=== PATIENT | male | born 1965 | race Caucasian/White ===

== ENCOUNTER 2023-08-25 07:11 | Outpatient (OUT) | payer OTHER, SELFPAY ==
[2023-08-25 07:24] LABS: Basophils Absolute Auto 0.1 10^3/uL (0.0-0.1); Basophils Percent Auto 0.9 % (0.2-2.0); Eosinophils Absolute Auto 0.4 10^3/uL (0.0-0.7); Eosinophils Percent Auto 6.1 % (0.9-7.0); Hematocrit 40.3 % (42.0-54.0); Hemoglobin 13.2 g/dL (14.0-18.0); Immature Granulocytes Abs Auto 0.02 10^3/uL (0.00-0.03); Immature Granulocytes Pct Auto 0.3 % (0.0-0.5); Lymphocytes Absolute Auto 1.9 10^3/uL (1.2-3.8); Mean Corpuscular HGB Conc 32.8 g/dL (29.9-35.2); Mean Corpuscular Hemoglobin 31.3 pg (25.9-34.0); Mean Corpuscular Volume 95.5 fL (80.0-94.0); Mean Platelet Volume 10.7 fL (9.5-13.5); Monocytes Absolute Auto 0.5 10^3/uL (0.3-0.8); Neutrophils Absolute Auto 3.5 10^3/uL (1.4-6.5); Neutrophils Percent Auto 54.7 % (43.0-75.0); Platelet Count 161 10^3/uL (150-450); Red Blood Count 4.22 10^6/uL (4.70-6.10); Red Cell Distribution Width 11.9 % (11.0-15.0); White Blood Count 6.4 10^3/uL (4.0-11.0)
[2023-08-25 07:31] LABS: Estimated Average Glucose 111 mg/dL; Glycohemoglobin A1C 5.5 % (4.5-6.2)
[2023-08-25 07:54] LABS: Anion Gap 12.3; BUN Creatinine Ratio 12.9; Calcium 8.8 mg/dL (8.5-10.1); Carbon Dioxide 27.9 mmol/L (21.0-32.0); Chloride 107 mmol/L (98-107); Chol HDL Ratio 6.6; Cholesterol 237 mg/dL (<=200); Estimated GFR (African America >60 (>=60); Estimated GFR (Non-African Ame >60 (>=60); Glucose 124 mg/dL (74-106); HDL Cholesterol 36 mg/dL (40-60); Potassium 4.2 mmol/L (3.5-5.1); Sodium 143 mmol/L (136-145); Triglycerides 281 mg/dL (<=150); VLDL CHOLESTEROL 56.2 mg/dL
== END 2023-08-25 07:12 | disposition home or self-care (01) ==
LOC: LAB 07:11
PROVIDERS: PCP Internal Medicine; Visit Provider Internal Medicine
DX: I10 Essential (primary) hypertension (principal); Z13.220 Encounter for screening for lipoid disorders; Z13.1 Encounter for screening for diabetes mellitus
CPT/HCPCS: 36415; 80048; 80061; 83036; 85025

== ENCOUNTER 2024-09-13 13:53 | Outpatient (OUT) | payer OTHER, SELFPAY ==
--- NOTE | 2024-09-13 14:15 | CT_ITS ---
[address] [address] Patient Name: LA WILKINSON MRN: [id number] date: 1965 Sex: M Assigned Patient Location: LAB Current Patient Location: Accession/Order Number: [id number] Exam Date: 09/13/2024 15:05 Report Date: 09/14/2024 09:08 At the request of: ZULLY BOYKIN Procedure: CT abdomen pelvis w con EXAMINATION: CT abdomen pelvis w con HISTORY: Left upper quadrant pain COMPARISON: No relevant comparison available. TECHNIQUE: Axial, Coronal, and Sagittal images were created without IV contrast. Dose reduction techniques were achieved by using automated exposure control and/or adjustment of mA and/or kV according to patient size and/or use of iterative reconstruction technique. FINDINGS: LUNG BASES: No visible pulmonary or pleural disease. LIVER: Diffuse hypoattenuation of the liver suggesting hepatic steatosis. There is a 1.6 cm enhancing mass in the left hepatic lobe axial image #32 possibly a hemangioma BILIARY: No dilatation or calcification. PANCREAS: No lesion, fluid collection, ductal dilatation, or atrophy. SPLEEN: No enlargement or focal lesion. ADRENALS: No mass or enlargement. KIDNEYS: Nonobstructive right renal nephrolith. No obstructive uropathy BOWEL/MESENTERY: No visible mass, obstruction, or bowel wall thickening. Normal appendix AORTA/VASCULAR: No aortic aneurysm. Moderate calcific atherosclerosis RETROPERITONEUM: No mass or adenopathy. LYMPH NODES: No adenopathy. URINARY BLADDER: No visible focal wall thickening, lesion, or calculus. PELVIC ORGANS: No visible mass. Pelvic organs appropriate for patient age. ABDOMINAL WALL: No mass or hernia. BONES: No bony lesion or fracture. OTHER: Negative. CT/CT abdomen pelvis w con IMPRESSION: 1.6 cm enhancing left hepatic lobe mass, hemangioma is favored. Electronically authenticated by: MILANA MARTIN Date: 09/14/2024 09:08
--- OUTSIDE RECORDS SUMMARY | 2024-09-13 14:18 | XMS_ITS | CCD ---
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 (10/31/18 20:15:00 EDT) ALT: 25 Int._Unit/L (10/31/18 20:15:00 EDT) AST: 28 Int._Unit/L (10/31/18 20:15:00 EDT) Total Protein: 7 gm/dL (10/31/18 20:15:00 EDT) Albumin Lvl: 4.4 gm/dL (10/31/18 20:15:00 EDT) Globulin: 2.6 gm/dL (10/31/18 20:15:00 EDT) A/G Ratio: 1.7 (10/31/18 20:15:00 EDT) Bili Total: 0.6 mg/dL (10/31/18 20:15:00 EDT) Bili Direct: <0.1 (10/31/18 20:15:00 EDT) Bili Indirect: Unable to Calculate Abnormal (10/31/18 20:15:00 EDT) Lipase Lvl: 31 unit/L (10/31/18 20:15:00 EDT) Myoglobin: 223 ng/mL High (10/31/18 20:15:00 EDT) Troponin: <0.03 (10/31/18 20:15:00 EDT) Total CK: 261 Int._Unit/L (10/31/18 20:15:00 EDT) U Amph Scr: Negative (10/31/18 21:10:00 EDT) U Heather Scr: Negative (10/31/18 21:10:00 EDT) U Benzodia Scr: Negative (10/31/18 21:10:00 EDT) U Cannab Scr: Negative (10/31/18 21:10:00 EDT) U Cocaine Scr: Negative (10/31/18 21:10:00 EDT) U Opiate Scr: NEG1 (10/31/18 21:10:00 EDT) U PCP Scr: Negative (10/31/18 21:10:00 EDT) Ethanol Lvl: <5 (10/31/18 20:15:00 EDT) UA Spec Desc: Clean Catch (10/31/18 21:10:00 EDT) UA Color: Yellow2 (10/31/18 21:10:00 EDT) UA Clarity: Clear2 (10/31/18 21:10:00 EDT) UA Spec Grav: >=1.030 (10/31/18 21:10:00 EDT) UA pH: 5.5 (10/31/18 21:10:00 EDT) UA Protein: 1+ Abnormal (10/31/18 21:10:00 EDT) UA Glucose: NEGATIVE1 (10/31/18 21:10:00 EDT) UA Ketones: NEGATIVE1 (10/31/18 21:10:00 EDT) UA Bili: NEGATIVE1 (10/31/18 21:10:00 EDT) UA Blood: 2+ Abnormal (10/31/18 21:10:00 EDT) UA Nitrite: NEGATIVE1 (10/31/18 21:10:00 EDT) UA Urobilinogen: 0.2 (10/31/18 21:10:00 EDT) UA Leuk Est: NEGATIVE1 (10/31/18 21:10:00 EDT) UA RBC: 4-20 (10/31/18 21:10:00 EDT) UA Squam Epithelial: 0-2 (10/31/18 21:10:00 EDT) UA WBC: 0-5 (10/31/18 21:10:00 EDT) UA Bacteria: Trace2 (10/31/18 21:10:00 EDT) UA Amorph Trisha: Present (10/31/18 21:10:00 EDT) UA Mucous: Trace2 (10/31/18 21:10:00 EDT) ABO/Rh: A POS (10/31/18 20:15:00 EDT) ABSC Gel Interp: Negative (10/31/18 20:15:00 EDT) Diagnostic Results CT Abdomen/Pelvis w/ Contrast * Preliminary * 10/31/18 21:53:20 NEGATIVE: no acute abdominal injury. nonobstructing right renal calculus. fatty liver. enhancing right and left lobe hepatic lesions are most likely hemangiomas but not entirely specific Read By: Julia Quijano DO CT Chest w/ Contrast * Preliminary * 10/31/18 21:52:35 NEGATIVE: no acute thoracic injury Read By: Julia Quijano DO CT Head or Brain w/o Contrast * Preliminary * 10/31/18 22:04:05 : frontal scalp contusion. no acute brain or skull injury. gas in the right malar region. suspected nondisplaced R maxillary sinus fracture age indetermite fx of rightward nasal bridge Read By: Julia Quijano DO CT Spine Cervical w/o Contrast * Preliminary * 10/31/18 21:39:11 NEGATIVE: NO FRACTURE Read By: Julia Quijano DO Normal [facility] Comment on above: Result Comment: Elec tronically Signed By: Julia Quijano DO\.br\Date and Time Signed: 11/01/18 02:53 EDT ED Patient Education Noteon 11-01-2018 ED Patient Education Note Family Medicin e Concussion A concussion is a brain injury. It is caused by: ? A hit to the head. ? A quick and sudden movement (jolt) of the head or neck. A concussion is usually not life threatening. Even so, it can cause serious problems. If you had a concussion before, you may have concussion-like problems after a hit to your head. HOME CARE General Instructions ? Follow your doctor's directions carefully. ? Take medicines only as told by your doctor. ? Only take medicines your doctor says are safe. ? Do not drink alcohol until your doctor says it is okay. Alcohol and some drugs can slow down healing. They can also put you at risk for further injury. ? If you are having trouble remembering things, write them down. ? Try to do one thing at a time if you get distracted easily. For example, do not watch TV while making dinner. ? Talk to your family members or close friends when making important decisions. ? Follow up with your doctor as told. ? Watch your symptoms. Tell others to do the same. Serious problems can sometimes happen after a concussion. Older adults are more likely to have these problems. ? Tell your teachers, school nurse, school counselor, executive coach, athletic equipment custodian, or target worker about your concussion. Tell them about what you can or cannot do. They should watch to see if: ? It gets even harder for you to pay attention or concentrate. ? It gets even harder for you to remember things or learn new things. ? You need more time than normal to finish things. ? You become annoyed (irritable) more than before. ? You are not able to deal with stress as well. ? You have more problems than before. ? Rest. Make sure you: ? Get plenty of sleep at night. ? Go to sleep early. ? Go to bed at the same time every day. Try to wake up at the same time. ? Rest during the day. ? Take naps when you feel tired. ? Limit activities where you have to think a lot or concentrate. These include: ? Doing homework. ? Doing work related to a job. ? Watching TV. ? Using the computer. Returning To Your Regular Activities Return to your normal activities slowly, not all at once. You must give your body and brain enough time to heal. ? Do not play sports or do other athletic activities until your doctor says it is okay. ? Ask your doctor when you can drive, ride a bicycle, or work other vehicles or machines. Never do these things if you feel dizzy. ? Ask your doctor about when you can return to work or school. Preventing Another Concussion It is very important to avoid another brain injury, especially before you have healed. In rare cases, another injury can lead to permanent brain damage, brain swelling, or . The risk of this is greatest during the first 7?10 days after your injury. Avoid injuries by: ? Wearing a seat belt when riding in a car. ? Not drinking too much alcohol. ? Avoiding activities that could lead to a second concussion (such as contact sports). ? Wearing a helmet when doing activities like: ? Biking. ? Skiing. ? Skateboarding. ? Skating. ? Making your home safer by: ? Removing things from the floor or stairways that could make you trip. ? Using grab bars in bathrooms and handrails by stairs. ? Placing non-slip mats on floors and in bathtubs. ? Improve lighting in dark areas. GET HELP IF: ? It gets even harder for you to pay attention or concentrate. ? It gets even harder for you to remember things or learn new things. ? You need more time than normal to finish things. ? You become annoyed (irritable) more than before. ? You are not able to deal with stress as well. ? You have more problems than before. ? You have problems keeping your balance. ? You are not able to react quickly when you should. Get help if you have any of these problems for more than 2 weeks: ? Lasting (chronic) headaches. ? Dizziness or trouble balancing. ? Feeling sick to your stomach (nausea). ? Seeing (vision) problems. ? Being affected by noises or light more than normal. ? Feeling sad, low, down in the dumps, blue, gloomy, or empty (depressed). ? Mood changes (mood swings). ? Feeling of fear or nervousness about what may happen (anxiety). ? Feeling annoyed. ? Memory problems. ? Problems concentrating or paying attention. ? Sleep problems. ? Feeling tired all the time. GET HELP RIGHT AWAY IF: ? You have bad headaches or your headaches get worse. ? You have weakness (even if it is in one hand, leg, or part of the face). ? You have loss of feeling (numbness). ? You feel off balance. ? You keep throwing up (vomiting). ? You feel tired. ? One black center of your eye (pupil) is larger than the other. ? You twitch or shake violently (convulse). ? Your speech is not clear (slurred). ? You are more confused, easily angered (agitated), or annoyed than before. ? You have more trouble resting than before. ? You are unable to recognize people or places. ? You have neck pain. ? It is difficult to wake you up. ? You have unusual behavior changes. ? You pass out (lose consciousness). MAKE SURE YOU: ? Understand these instructions. ? Will watch your condition. ? Will get help right away if you are not doing well or get worse. Document Released: 07/05/2010 Document Revised: 12/01/2014 Document Reviewed: 02/06/2014 ExitCare? Patient Information ?2015 [employer]. This information is not intended to replace advice given to you by your health care provider. Make sure you discuss any questions you have with your health care provider. Surgery Blunt Trauma You have been evaluated for injuries. You have been examined and your caregiver has not found injuries serious enough to require hospitalization. It is common to have multiple bruises and sore muscles following an accident. These tend to feel worse for the first 24 hours. You will feel more stiffness and soreness over the next several hours and worse when you wake up the first morning after your accident. After this point, you should begin to improve with each passing day. The amount of improvement depends on the amount of damage done in the accident. Following your accident, if some part of your body does not work as it should, or if the pain in any area continues to increase, you should return to the Emergency Department for re-evaluation. HOME CARE INSTRUCTIONS Routine care for sore areas should include: ? Ice to sore areas every 2 hours for 20 minutes while awake for the next 2 days. ? Drink extra fluids (not alcohol). ? Take a hot or warm shower or bath once or twice a day to increase blood flow to sore muscles. This will help you limber up . ? Activity as tolerated. Lifting may aggravate neck or back pain. ? Only take [id number] or prescription medicines for pain, discomfort, or fever as directed by your caregiver. Do not use aspirin. This may increase bruising or increase bleeding if there are small areas where this is happening. SEEK IMMEDIATE MEDICAL CARE IF: ? Numbness, tingling, weakness, or problem with the use of your arms or legs. ? A severe headache is not relieved with medications. ? There is a change in bowel or bladder control. ? Increasing pain in any areas of the body. ? Short of breath or dizzy. ? Nauseated, vomiting, or sweating. ? Increasing belly (abdominal) discomfort. ? Blood in urine, stool, or vomiting blood. ? Pain in either shoulder in an area where a shoulder strap would be. ? Feelings of lightheadedness or if you have a fainting episode. Sometimes it is not possible to identify all injuries immediately after the trauma. It is important that you continue to monitor your condition after the emergency department visit. If you feel you are not improving, or improving more slowly than should be expected, call your physician. If you feel your symptoms (problems) are worsening, return to the Emergency Department immediately. Document Released: 04/12/2002 Document Revised: 10/08/2012 Document Reviewed: 03/04/2009 ExitCare? Patient Information ?2014 [employer]. This information is not intended to replace advice given to you by your health care provider. Make sure you discuss any questions you have with your health care provider. Normal [facility] ED Patient Summaryon 019 ED Patient Summary [address] [address] Patient Discharge Instructions Person Information Name: DIONY WILKINSON Age: 53 Years Arrival Date: 10/31/2018 8:11 PM Discharge Diagnosis: 1:Right maxillary fracture; 2:Closed head injury; 3:Multiple contusions Primary Care Physician: Sanju Austin DO Provider Information Primary Provider: Julia Quijano DO Advanced Pewter Finisher:None The exam and treatment you received in the Emergency Department were for an urgent problem and are not intended as complete care. It is important that you follow up with a doctor, nurse practitioner, or physician?s marketing assistant for ongoing care. If your symptoms become worse or you do not improve as expected and you are unable to reach your usual health care provider, you should return to the Emergency Department. We are available 24 hours a day. DIONY WILKINSON has been given the following list of patient education materials, prescriptions and follow-up instructions: Follow-up Instructions: With: Address: When: JORGE L ESPINOZA [address], [address] [place], [place] [id number] Business (1) In 3 days 11/03/2018 Comments: ear nose and throat doctor follow up regarding your maxillary sinus fracture With: Address: When: Sanju Austin [address] [place] [address] Business (1) Within 1 to 2 days Comments: Return to ED if symptoms worsen In the event that this physician does not participate in your insurance network, please consult with your insurance company to find a nearby participating provider. Patient Education Materials: Concussion, Adult, Fhoo-mr-Natc; Blunt Trauma A MESSAGE TO ALL PATIENTS REGARDING OPIOIDS PRESCRIPTION OPIOIDS: WHAT YOU NEED TO KNOW Prescription opioids can be used to help relieve lstjmlch-da-uuvdzi pain and are often prescribed following a surgery or injury, or for certain health conditions. These medications can be an important part of the treatment but also come with serious risks. It is important to work with your healthcare provider to make sure you are getting the safest, most effective care. WHAT ARE THE RISKS AND SIDE EFFECTS OF OPIOID USE? Prescription opioids carry serious risks of addiction and overdose, especially with prolonged use. An opioid overdose, often marked by slowed breathing, can cause sudden . The use of prescription opioids can have a number of side effects as well, even when taken as directed: ? Tolerance?meaning you might need to take more of the medication for the same pain relief ? Physical dependence?meaning you have symptoms of withdrawal when a medication is stopped ? Increased sensitivity to pain ? Constipation ? Nausea, vomiting, and dry mouth ? Sleepiness and dizziness ? Confusion ? Depression ? Low levels of testosterone that can result in lower sex drive, energy, and strength ? Itching and sweating RISKS ARE GREATER WITH: ? History of drug misuse, substance use disorder, or overdose ? Mental health conditions (such as depression or anxiety) ? Sleep apnea ? Older age (65 years and older) ? Avoid alcohol while taking prescription opioids. Also, unless specifically advised by your health care provider, medications to avoid include: ? Benzodiazepines (such as Xanax or Valium) ? Muscle relaxants (such as Soma or Flexeril) ? Hypnotics (such as Ambien or Lunesta) ? Other prescription opioids KNOW YOUR OPTIONS Talk to your health care provider about ways to manage your pain that don?t involve prescription opioids. Some of these options may actually work better and have fewer risks and side effects. Options may include: ? Pain relievers such as acetaminophen, ibuprofen, and naproxen ? Some medication that are also used for depression or seizures ? Physical therapy and exercise ? Cognitive behavioral therapy, a psychological, goal-directed approach, in which patients learn how to modify physical, behavioral, and emotional triggers of pain and stress. IF YOU ARE PRESCRIBED OPIOIDS FOR PAIN: ? Never take opioids in greater amounts or more often than prescribed. ? Follow up with your primary health care provider. o Work together to create a plan on how to manage your pain. o Talk about ways to help manage your pain that don?t involve prescription opioids. o Talk about any and all concerns and side effects. ? Help prevent misuse and abuse o Never sell or share prescription opioids. o Never use another person?s prescription opioids. ? Store prescription opioids in a secure place and out of reach of others (this may include visitors, children, friends, and family). ? Safely dispose of unused prescription opioids: Find your community drug take-back program or your pharmacy mail-back program, or flush them down the toilet, following guidance from the Food and Drug Administration (www.fda.gov/Drugs/R esourcesForYou). ? Visit www.cdc.gov/drugover dose to learn about the risks of opioids abuse and overdose. ? If you believe you may be struggling with addiction, tell your health foster care worker and ask for guidance or call SAM[employer]?S National Helpline at 9-125-553-TOSK. v Source: [place] Department of Health and Human Services/Center for Disease Control & Prevention [facility] Medications Given: Medication Dose Route fentanyl 50.00 microgram IV Push Left Antecubital [place] Sodium Chloride 0.9% intravenous solution 1000.00 mL Initial Volume 1000.00 mL/hr IV Piggyback Left Antecubital [place] ondansetron 4.00 mg IV Push Left Antecubital [place] fentanyl 50.00 microgram IV Push Left Antecubital [place] orphenadrine 60.00 mg IV Push Left Antecubital [place] cefazolin 2.00 gram IV Piggyback Left Antecubital [place] acetaminophen-oxycod one 1.00 tab(s) Oral Medication Information: New Medications Printed Prescriptions acetaminophen-hydroc odone ([place] 325 mg-5 mg oral tablet) 1 Tabs By Mouth every 4 hours as needed for pain for 3 Days. Refills: 0. amoxicillin-clavulan ate (Augmentin 875 mg oral tablet) 1 Tabs By Mouth every 12 hours for 10 Days. Refills: 0. fluticasone nasal (Flonase 0.05 mg/inh [place]) 1 Sprays Nasal Inhalation 2 times a day. each nostril. Refills: 0. orphenadrine (orphenadrine 100 mg ER Tab) 1 Tabs By Mouth 2 times a day for 7 Days. Refills: 0. Comment: Pharmacy Information: Thank you for choosing [facility] Patient Education Materials: Concussion A concussion is a brain injury. It is caused by: ? A hit to the head. ? A quick and sudden movement (jolt) of the head or neck. A concussion is usually not life threatening. Even so, it can cause serious problems. If you had a concussion before, you may have concussion-like problems after a hit to your head. HOME CARE General Instructions ? Follow your doctor's directions carefully. ? Take medicines only as told by your doctor. ? Only take medicines your doctor says are safe. ? Do not drink alcohol until your doctor says it is okay. Alcohol and some drugs can slow down healing. They can also put you at risk for further injury. ? If you are having trouble remembering things, write them down. ? Try to do one thing at a time if you get distracted easily. For example, do not watch TV while making dinner. ? Talk to your family members or close friends when making important decisions. ? Follow up with your doctor as told. ? Watch your symptoms. Tell others to do the same. Serious problems can sometimes happen after a concussion. Older adults are more likely to have these problems. ? Tell your teachers, school nurse, school counselor, executive coach, athletic equipment custodian, or target worker about your concussion. Tell them about what you can or cannot do. They should watch to see if: ? It gets even harder for you to pay attention or concentrate. ? It gets even harder for you to remember things or learn new things. ? You need more time than normal to finish things. ? You become annoyed (irritable) more than before. ? You are not able to deal with stress as well. ? You have more problems than before. ? Rest. Make sure you: ? Get plenty of sleep at night. ? Go to sleep early. ? Go to bed at the same time every day. Try to wake up at the same time. ? Rest during the day. ? Take naps when you feel tired. ? Limit activities where you have to think a lot or concentrate. These include: ? Doing homework. ? Doing work related to a job. ? Watching TV. ? Using the computer. Returning To Your Regular Activities Return to your normal activities slowly, not all at once. You must give your body and brain enough time to heal. ? Do not play sports or do other athletic activities until your doctor says it is okay. ? Ask your doctor when you can drive, ride a bicycle, or work other vehicles or machines. Never do these things if you feel dizzy. ? Ask your doctor about when you can return to work or school. Preventing Another Concussion It is very important to avoid another brain injury, especially before you have healed. In rare cases, another injury can lead to permanent brain damage, brain swelling, or . The risk of this is greatest during the first 7?10 days after your injury. Avoid injuries by: ? Wearing a seat belt when riding in a car. ? Not drinking too much alcohol. ? Avoiding activities that could lead to a second concussion (such as contact sports). ? Wearing a helmet when doing activities like: ? Biking. ? Skiing. ? Skateboarding. ? Skating. ? Making your home safer by: ? Removing things from the floor or stairways that could make you trip. ? Using grab bars in bathrooms and handrails by stairs. ? Placing non-slip mats on floors and in bathtubs. ? Improve lighting in dark areas. GET HELP IF: ? It gets even harder for you to pay attention or concentrate. ? It gets even harder for you to remember things or learn new things. ? You need more time than normal to finish things. ? You become annoyed (irritable) more than before. ? You are not able to deal with stress as well. ? You have more problems than before. ? You have problems keeping your balance. ? You are not able to react quickly when you should. Get help if you have any of these problems for more than 2 weeks: ? Lasting (chronic) headaches. ? Dizziness or trouble balancing. ? Feeling sick to your stomach (nausea). ? Seeing (vision) problems. ? Being affected by noises or light more than normal. ? Feeling sad, low, down in the dumps, blue, gloomy, or empty (depressed). ? Mood changes (mood swings). ? Feeling of fear or nervousness about what may happen (anxiety). ? Feeling annoyed. ? Memory problems. ? Problems concentrating or paying attention. ? Sleep problems. ? Feeling tired all the time. GET HELP RIGHT AWAY IF: ? You have bad headaches or your headaches get worse. ? You have weakness (even if it is in one hand, leg, or part of the face). ? You have loss of feeling (numbness). ? You feel off balance. ? You keep throwing up (vomiting). ? You feel tired. ? One black center of your eye (pupil) is larger than the other. ? You twitch or shake violently (convulse). ? Your speech is not clear (slurred). ? You are more confused, easily angered (agitated), or annoyed than before. ? You have more trouble resting than before. ? You are unable to recognize people or places. ? You have neck pain. ? It is difficult to wake you up. ? You have unusual behavior changes. ? You pass out (lose consciousness). MAKE SURE YOU: ? Understand these instructions. ? Will watch your condition. ? Will get help right away if you are not doing well or get worse. Document Released: 07/05/2010 Document Revised: 12/01/2014 Document Reviewed: 02/06/2014 ExitCare? Patient Information ?2015 [employer]. This information is not intended to replace advice given to you by your health care provider. Make sure you discuss any questions you have with your health care provider. Blunt Trauma You have been evaluated for injuries. You have been examined and your caregiver has not found injuries serious enough to require hospitalization. It is common to have multiple bruises and sore muscles following an accident. These tend to feel worse for the first 24 hours. You will feel more stiffness and soreness over the next several hours and worse when you wake up the first morning after your accident. After this point, you should begin to improve with each passing day. The amount of improvement depends on the amount of damage done in the accident. Following your accident, if some part of your body does not work as it should, or if the pain in any area continues to increase, you should return to the Emergency Department for re-evaluation. HOME CARE INSTRUCTIONS Routine care for sore areas should include: ? Ice to sore areas every 2 hours for 20 minutes while awake for the next 2 days. ? Drink extra fluids (not alcohol). ? Take a hot or warm shower or bath once or twice a day to increase blood flow to sore muscles. This will help you limber up . ? Activity as tolerated. Lifting may aggravate neck or back pain. ? Only take [id number]-[id number] or prescription medicines for pain, discomfort, or fever as directed by your caregiver. Do not use aspirin. This may increase bruising or increase bleeding if there are small areas where this is happening. SEEK IMMEDIATE MEDICAL CARE IF: ?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 15:36-0500 Systolic blood pressure 131 mm[Hg] [facility] 04-25-2024 08:41-0400 Body height 172.72 cm [facility] 04-25-2024 08:41-0400 Body mass index (BMI) [Ratio] 28.8 kg/m2 [facility] 04-25-2024 08:41-0400 Body weight 86.18 kg [facility] 04-25-2024 08:41-0400 Diastolic blood pressure 78 mm[Hg] [facility] 04-25-2024 08:41-0400 Heart rate 73 /min [facility] 04-25-2024 08:41-0400 Systolic blood pressure 115 mm[Hg] [facility] Encounters Encounter Date Encounter Type Care Provider Facility Start: 09-03-2024 End: 09-03-2024 ambulatory [facility] Work Phone: Start: 09-03-2024 End: 09-03-2024 Patient encounter procedure [facility] Physician [facility] Work Phone: Start: 04-25-2024 End: 04-25-2024 ambulatory [facility] Work Phone: Start: 04-25-2024 End: 04-25-2024 Patient encounter procedure [facility] Physician [facility] Work Phone: Start: 01-15-2024 End: 01-15-2024 ambulatory DOMINIQUE FAWWAD Not Available Start: 10-09-2023 End: 10-09-2023 ambulatory DOMINIQUE FAWWAD Not Available Start: 09-28-2023 End: 09-28-2023 ambulatory DOMINIQUE FAWWAD Not Available Start: 08-07-2023 End: 08-07-2023 ambulatory DOMINIQUE FAWWAD Not Available Start: 04-20-2022 End: 04-21-[address] SANJU AUSTIN Facility:[id number] Start: 11-28-2018 Patient encounter procedure DICKSON ROUSSEAU Facility:[id number] Start: 10-31-2018 End: 11-01-2018 Emergency department patient visit Julia Quijano [place] [place] Date Procedure Procedure Detail Performing Clinician Start: 11-29-2018 Follow-up visit Plan of Treatment Date Care Activity Detail Author Comprehensive metabo lic 2000 panel - Serum or Plasma [facility] enter CT Abdomen and Pelvis W contrast IV [facility] Payers Date Payer Category Payer Unknown [id number] 2.16.84 [id number] 1965 Unknown [id number] 1965 Unknown [id number] 2.16.84 [id number] 1963 Unknown [id number] 2.16.84 [id number] 1963 Unknown [id number] 2.16.84 [id number] 1963 Unknown [id number] 2.16.84 [id number] 1963 Unknown [id number] 2.16.84 [id number] 1959 Unknown [id number] Self-pay Self Pay [id number] Social History Date Type Detail Facility Start: 04-25-2024 End: 08-29-2024 Tobacco smoking status NHIS Never smoked tobacco (finding) [facility] Start: 1965 Sex Assigned At Male [facility] Start: 09-04-2024 Sex Male (finding) [facility] Evaluation note 09-03-2024 Note Date & Type Note Facility 09-03-2024 Evaluation note Diagnosis Onset Date Resolution Hypertension acute August 3:34pm LUQ abdominal pain acute Februa 2024 3:34pm [facility] Work Phone: Evaluation note Note Date & Type Note Facility Evaluation note No assessment information availa ble [facility] Work Phone: Summary Purpose Family History No Family History Records FoundNo Family History Records FoundNo Family History Records FoundNo Family History Records FoundNo Family History Records Found Advance Directives Advance Directive Response Recorded Date/ Time Advance Directives No March 8:26am Advance Directive Response Recorded Date/ Time Advance Directives No August 29, 2024 9:17am Chief Complaint and Reason for Visit Chief Complaint new pt, discuss some things Chief Complaint Admit Date L Side Hernia September 03, 2024 3 :34pm Reason for Visit Admit Date Hypertension September 03, 2024 3 :34pm LU[facility] abdominal pain September 03, 2024 3 :34pm Additional Source Comments (unrecognized sect ion and content) No Status Records FoundNo Status Records FoundNo Status Records FoundNo Status Records FoundNo Status Records Found INFORMATION SOURCE (unrecogn ized section and content) DATE CREATED AUTHOR 11/04/2018 [facility] DATE CREATED AUTHOR AUTHOR'S ORGANIZ ATION 12/04/2018 [facility] DATE CREATED AUTHOR AUTHOR'S ORGANIZ ATION 12/06/2018 [employer] DATE CREATED AUTHOR AUTHOR'S ORGANIZ ATION 05/01/2022 [facility] DATE CREATED AUTHOR AUTHOR'S ORGANIZ ATION 01/17/2024 [facility] [employer] Care Teams (unrecognized sec tion and content) Team Status: Active Member Role Status Dates Mohamud Box DO Primary Care Provider Active Team Status: Inactive Member Role Status Dates Mohamud Box DO Primary Care Provider Active Start: April 25, 2024 End: April 25, 2024 Bria Mike MD Attending Provider Active St art: April 25, 2024 End: April 25, 2024 Team Status: Inactive Member Role Status Dates Mohamud Box DO Primary Care Provider Active Start: September 03, 2024 End: September 03, 2024 Bria Mike MD Attending Provider Active St art: September 03, 2024 End: September 03, 2024 Goals (unrecognized section and content) Goals may be documented in a n alternate sectionGoals may be documented in an alternate section FOR RECORDS PERTAINING TO PATIENTS WHO ARE OR HAVE BEEN ENROLLED IN A CHEMICAL DEPENDENCY/SUBSTANCEABUSE PROGRAM, SOME INFORMATION MAY BE OMITTED. This clinical summary was aggregated from multiple sources. Caution should be exercised in using it in the provision of clinical care. This summary normalizes information from multiple sources, and as a consequence, information in this document may materially change the coding, format and clinical context of patient data. In addition, data may be omitted in some cases. CLINICAL DECISIONS SHOULD BE BASED ON THE PRIMARY CLINICAL RECORDS. [facility] [employer] [facility] provides no warranty or guarantee of the accuracy or completeness of information in this document.
[2024-09-13 14:25] LABS: Estimated GFR (African America >60 (>=60 mL/min/1.73m^2); Estimated GFR (Non-African Ame 53 (>=60 mL/min/1.73m^2)
== END 2024-09-13 13:54 | disposition home or self-care (01) ==
LOC: LAB 13:56
PROVIDERS: PCP Family Medicine; Visit Provider Family Medicine
DX: R10.12 Left upper quadrant pain (principal); R16.0 Hepatomegaly, not elsewhere classified
CPT/HCPCS: 36415; 74177; 82565; Q9967